=== PATIENT | female | born 1980 | race African-American/Black ===

== ENCOUNTER 2016-08-17 22:33 | Emergency (ER) | payer OTHER ==
--- NOTE | ~2016-08-17 | CR126 ---
[facility] A Service of [facility] & [facility] RADIOLOGY TEXT RESULTS PATIENT: VERO PALACIOS LOCATION: [facility] : [birth year] UNIT #: [id number] AGE: [address]: Sandra Calero SEX: F ORDER DR: [id number] [facility] [address]. [place], [place] [address] [id number] E MR#: [id number] Acc #: [id number] NAME: VERO PALACIOS : 1980 SEX: F STUDY DATE/TIME: 08/17/2016 22:11 UNIT: [facility] ROOM: STUDY DESCRIPTION: CR Foot Complete Min 3 View Lt Attending Physician: Sandra Calero Pa-C Ordering Physician: Sandra Calero Pa-C Primary Care Physician: Generic Doctor Not In System MEDICAL IMAGING REPORT This report is preliminary unless electronic signature is present EXAM Left foot, 3 views. DATE OF EXAM 08/17/2016 HISTORY Left foot pain and swelling after twisting foot yesterday. FINDINGS The tarsal, metatarsal, and phalangeal elements are all anatomically normal in position and alignment. There are no articular defects. No fractures or radiopaque foreign bodies in the soft tissues are apparent. IMPRESSION Normal left foot. Dictated by... Nolan Tran M.D. THIS IS AN ELECTRONICALLY VERIFIED REPORT Nolan Tran M.D. at 08/19/2016 2:20 PM MCIKI/sheldon TD: 08/18/2016 16:47 JOB #: [id number] MEDICAL IMAGING REPORT COPY
[~2016-08-17 22:33] MED LIST: OLANZAPINE20 MG PO
== END 2016-08-17 22:52 | disposition home or self-care (01) ==
LOC: CFTX 22:33
DX: S96.912A Strain of unspecified muscle and tendon at ankle and foot level, left foot, initial encounter (principal); Z88.5 Allergy status to narcotic agent; Z91.013 Allergy to seafood; W50.2XXA Accidental twist by another person, initial encounter; Y92.099 Unspecified place in other non-institutional residence as the place of occurrence of the external cause; Z79.899 Other long term (current) drug therapy
CPT/HCPCS: 29540; 73630; 99283